=== PATIENT | female | born 1950 | race Caucasian/White ===

== ENCOUNTER → 2017-12-18 13:48 | Outpatient (CLI) | payer OTHER, SELFPAY ==
--- NOTE | 2017-12-18 | DI.RAD.S_ITS ---
PROCEDURE: XR CHEST 2V INDICATIONS: UNSPECIFIED ASTHMA TECHNIQUE: 2 views of the chest were acquired. COMPARISON: [facility], , CHEST 2 VIEW, 11/07/2015, 12:16. FINDINGS: Surgical changes and devices: None. Lungs and pleura: No pleural effusions or pneumothorax. Lungs are clear. Mediastinum: Mediastinal contours are normal. Heart size is normal. Bones and chest wall: No suspicious bony abnormalities. Lateral curvature of the spine Soft tissues appear unremarkable. IMPRESSION: No acute disease. Dictated by: Joey Alonso M.D. on 12/18/2017 at 15:27 Approved by: Joey Alonso M.D. on 12/18/2017 at 15:31
== END ==
PROVIDERS: PCP Physician Assistant; Visit Provider Physician Assistant
DX: J45.909 Unspecified asthma, uncomplicated (principal)
CPT/HCPCS: 71046

== ENCOUNTER → 2018-01-30 09:51 | Outpatient (CLI) | payer OTHER, SELFPAY ==
--- NOTE | 2018-01-30 | DI.RAD.S_ITS ---
PROCEDURE: XR HIP W PEL IF DONE LT 2V INDICATIONS: Pain in left hip TECHNIQUE: AP pelvis with lateral view(s) of the left hip(s). COMPARISON: None. FINDINGS: Bones: No fractures or dislocations. Pelvic ring appears intact. No suspicious bony lesions. Degenerative disc and facet disease involves the inferior lumbar spine. Degenerative changes seen at the pubis symphysis. Soft tissues: The visualized bowel gas pattern is normal. No suspicious soft tissue calcifications. IMPRESSION: No definite hip radiographic abnormality. If pain persists, consider cross sectional imaging such as CT or MRI for further assessment. Dictated by: Anderson Gerardo [facility] Interpreted: Joey Alonso MD on 01/30/2018 at 10:05 Approved by: Joey Alonso M.D. on 01/30/2018 at 15:48
== END ==
PROVIDERS: PCP Physician Assistant; Visit Provider Physician Assistant
DX: M25.552 Pain in left hip (principal)
CPT/HCPCS: 73502

== ENCOUNTER 2018-06-13 12:22 | Emergency (ER) | payer OTHER, SELFPAY ==
[2018-06-13 12:24] VITALS: BP 117/69; PULSE 78; RESP 14; TEMP 36.7; O2SAT 97
--- NOTE | 2018-06-13 14:00 | PC.NURSE ---
warm compress applied to leg
--- NOTE | 2018-06-13 14:14 | ED_ITS ---
HPI - Skin/Abscess/Foreign Bdy <MARTA Haywood - Last Filed: 06/13/18 16:06> General Chief complaint: Skin/Abscess/Foreign Body Stated complaint: spider bite Time Seen by Provider: 06/13/18 13:43 Source: patient and family Mode of arrival: ambulatory Limitations: no limitations History of Present Illness HPI narrative: Patient is a 67-year-old female former smoker who presents with her for chief complaint of a spider bite. She was started on Keflex on Friday, and took that for 2 days. She went back to her primary care provider, who stopped the Keflex and started her on Bactrim. She is concerned about lack of improvement of the redness. She denies any fevers nausea vomiting diarrhea or systemic signs of illness. She states overall she does not feel great at this point in time. She did not overlap antibiotics. She has been trying to rest her leg. She has applying warm compresses a few times a day. Related Data Allergies Allergy/AdvReac Type Severity Reaction Status Date / Time No Known Drug Allergies Allergy Verified 06/13/18 12:28 Review of Systems <MARTA Haywood - Last Filed: 06/13/18 16:06> Review of Systems GENERAL: Denies chills, fatigue, malaise, fever, sweats. HEENT: Denies sinus pain, ear pain, sore throat, difficulty swallowing, dizziness. RESPIRATORY: Denies dyspnea, cough, wheezing, hemoptysis, sputum. CARDIOVASCULAR: Denies chest pain, palpitations, orthopnea, edema, GASTROINTESTINAL: Denies nausea, vomiting, abdominal pain, diarrhea, constipation, melena. : Denies dysuria, frequency, incontinence, hematuria, urinary retention. MUSCULOSKELETAL: denies weakness, joint pain, or bony pain SKIN: See HPI NEUROLOGIC: Denies weakness, headache, numbness, change in speech, confusion, seizures, incoordination. PSYCHIATRIC: No concerning psychosocial issues. 12 point review of systems is negative except for those stated above PFSH <MARTA Haywood - Last Filed: 06/13/18 16:06> Social History Smoking Status: Former smoker Social History Smoking Status: Former smoker Exam <MARTA Haywood - Last Filed: 06/13/18 16:06> Narrative Exam Narrative: GENERAL: This is a well-nourished, well-developed patient, in no acute distress, wearing sunglasses in the exam room. HEAD: Atraumatic. Normocephalic. No temporal or scalp tenderness. EYES: Pupils equal round and reactive. Extraocular motions intact. No scleral icterus. No injection or drainage. ENT: Nose without bleeding, purulent drainage or septal hematoma. Throat without erythema, tonsillar hypertrophy or exudate. Uvula midline. Airway patent. NECK: Trachea midline. No JVD or lymphadenopathy. Supple, nontender, no meningeal signs. CARDIOVASCULAR: Regular rate and rhythm RESPIRATORY: Clear to auscultation. Breath sounds equal bilaterally. No wheezes, rales, or rhonchi. No increased respiratory effort. No accessory muscle use. GASTROINTESTINAL: Abdomen soft, non-tender, nondistended. No hepato- splenomegaly, or palpable masses. No guarding. EXTREMITIES: Positive pedal pulses left foot. No edema left foot. BACK: Nontender without deformity or crepitance. No flank tenderness. NEURO: AOx3. SKIN: 6 x 6 cm area of erythema left lower leg. No palpable fluctuance. Erythema is within border placed by primary care provider. No obvious drainage. Initial Vital Signs Initial Vital Signs: Vital Signs Temperature 98.1 F 06/13/18 12:24 Pulse Rate 78 06/13/18 12:24 Respiratory Rate 14 06/13/18 12:24 Blood Pressure 117/69 06/13/18 12:24 Pulse Oximetry 97 06/13/18 12:24 <Tamara Lugo DO - Last Filed: 06/13/18 19:48> Initial Vital Signs Initial Vital Signs: Vital Signs Temperature 98.1 F 06/13/18 12:24 Pulse Rate 78 06/13/18 12:24 Respiratory Rate 14 06/13/18 12:24 Blood Pressure 117/69 06/13/18 12:24 Pulse Oximetry 97 06/13/18 12:24 Course <MARTA Haywood - Last Filed: 06/13/18 16:06> Orders Ordered: ED Orders 06/13/18 14:05 Wound Culture and Gram Stain Stat Vital Signs - 8 hr 06/13/18 12:24 06/13/18 14:48 Temperature 98.1 F 97.1 F L Pulse Rate 78 70 Respiratory Rate 14 14 Blood Pressure 117/69 Blood Pressure [Left Arm] 110/72 Pulse Oximetry 97 99 <Tamara Lugo DO - Last Filed: 06/13/18 19:48> Orders Ordered: ED Orders 06/13/18 14:05 Wound Culture and Gram Stain Stat Vital Signs - 8 hr 06/13/18 12:24 06/13/18 14:48 Temperature 98.1 F 97.1 F L Pulse Rate 78 70 Respiratory Rate 14 14 Blood Pressure 117/69 Blood Pressure [Left Arm] 110/72 Pulse Oximetry 97 99 MDM - Skin/Abscess/Foreign Bdy <PEARL Haywood-BC - Last Filed: 06/13/18 16:06> MDM Narrative Medical decision making narrative: The patient is a 67 year old female presenting with chief complaint of a spider bite. She has been on Bactrim for 2 days at this point time. Her erythema is within the border. Given that she does not have any signs of systemic illness and has no fever, I do not see it for admit to change her antibiotics at this point time. She was also on Keflex for 2 days already, but stopped that therapy. A wound culture was obtained and in case her antibiotics need to be changed the future. I discussed at length return precautions including fever, vomiting and diarrhea. I encouraged her to follow up with primary care provider in a few days. Patient and stated understanding. Discharge Plan Departure Patient Disposition: Home Clinical Impression: Cellulitis Qualifiers: Site of cellulitis: extremity Site of cellulitis of extremity: lower extremity Laterality: left Qualified Code(s): L03.116 - Cellulitis of left lower limb Discharge Date/Time: 06/13/18 14:49 Interventions: ED Discharge Assessment Last Done: 06/13/18 14:49 Instructions: DI for Cellulitis -- Adult, How To Perform RICE (Rest, Ice, Compress, Elevate) Activity Restrictions/Additional Instructions: At this point I am not going to change your antibiotics. However we did obtained a wound culture to make sure that the antibiotic you are on is effective for the infection that you have. Please continue to rest and elevate her foot. Monitor for fevers nausea vomiting diarrhea. Please be evaluated if any of these occur. Referrals: Vee Saleh PA-C [Primary Care Provider] - <Tamara Lugo DO - Last Filed: 06/13/18 19:48> Cosign ED Attending Cosignature Attestation: I was immediately available in the department for consultation. This documentation has been reviewed and I agree with assessment and plan. Supervised by Tamara Lugo DO
[2018-06-13 14:48] VITALS: BP 110/72; PULSE 70; RESP 14; TEMP 36.2; O2SAT 99
== END 2018-06-13 14:49 | disposition home or self-care (01) ==
PROVIDERS: Emergency Provider Nurse Practitioner Family; PCP Physician Assistant
DX: L03.116 Cellulitis of left lower limb (principal)
CPT/HCPCS: 87070; 87205; 99282; 99283

== ENCOUNTER → 2018-06-30 09:21 | Outpatient (CLI) | payer OTHER, SELFPAY ==
--- NOTE | 2018-06-30 | DI.US.S_ITS ---
PROCEDURE: US ABDOMEN COMPLETE INDICATIONS: Abnormal results of liver function studies TECHNIQUE: Real-time scanning was performed of the abdominal and retroperitoneal organs, with image documentation. COMPARISON: [facility], MR, ABDOMEN WITHOUT CONTRAST, 12/30/2016, 7:11. [facility], US, ABDOMEN COMPLETE, 12/24/2016, 8:42. FINDINGS: Liver: Liver is normal in size and demonstrates mildly heterogeneous echotexture. Gallbladder: There is a nonmobile gallstone measuring 1.6 cm, unchanged from the last exam. No gallbladder wall thickening, pericholecystic fluid or sonographic Neri's sign. Biliary ducts: Intrahepatic bile ducts are non-dilated. Extrahepatic bile duct caliber measures 7.4 mm. Normal is 6-7 mm or less in diameter, or 10 mm or less post-cholecystectomy. Pancreas: Visualized portions of the pancreas are sonographically normal. Spleen: Spleen is normal in size and homogeneous in echotexture. Kidneys: Kidneys are normal in size and echotexture. Right kidney measures 10.7 cm long; left kidney measures 10.1 cm long. No hydronephrosis or nephrolithiasis. No solid masses. Aorta: Visualized aorta is normal in caliber at less than 3 cm. Iliacs: Proximal common iliac arteries are normal in caliber at less than 2.5 cm. IVC: Intrahepatic inferior vena cava is patent. Miscellaneous: No free abdominal fluid. IMPRESSION: 1. Cholelithiasis. 2. Prominent common bile duct. Please correlate with serum bilirubin for biliary obstruction. 3. Liver is slightly heterogeneous in echotexture. No focal hepatic mass. Dictated by: Shilpa Florentino M.D. on 06/30/2018 at 11:26 Approved by: Shilpa Florentino M.D. on 06/30/2018 at 11:30
== END ==
PROVIDERS: PCP Physician Assistant; Visit Provider Physician Assistant
DX: R94.5 Abnormal results of liver function studies (principal); K80.20 Calculus of gallbladder without cholecystitis without obstruction
CPT/HCPCS: 76700

== ENCOUNTER → 2018-08-06 07:46 | Outpatient (CLI) | payer OTHER, SELFPAY ==
--- NOTE | 2018-08-06 | DI.MRI.S_ITS ---
PROCEDURE: MR ABDOMEN WO CON INDICATIONS: ELEVATED LFTS AND CBD DIALATION TECHNIQUE: Coronal HASTE through the abdomen, axial 2-D FLASH in- and [id number], and breath-hold T2 FSE with fat saturation through the biliary system and pancreas. Oblique coronal and axial thin-slice HASTE, radial thick-slab HASTE centered on the extrahepatic bile ducts. Intravenous secretin: Not requested. COMPARISON: [facility], US, US ABDOMEN COMPLETE, 06/30/2018, 9:33. [facility], MR, ABDOMEN WITHOUT CONTRAST, 12/30/2016, 7:11. FINDINGS: Image quality: Excellent. Pancreas and biliary system: Intra- and extra-hepatic biliary ducts are non dilated. The common duct measures 6.7 mm in maximal diameter. No choledocholithiasis. Pancreas is normal in morphology, without adjacent soft tissue edema. Pancreatic duct is normal in caliber, without developmental anomalies. Gallbladder contains a 1.5 cm stone dependently within the gallbladder body. No surrounding inflammatory changes, pericholecystic fluid, or wall thickening.. Other solid organs: Liver is normal in size. Spleen is normal in size. No adrenal nodules. Both kidneys are normal in size, without hydronephrosis. Nodes and vessels: No retroperitoneal or mesenteric adenopathy by size criteria. Aorta and inferior vena cava are normal in size. Bowel and peritoneum: Unenhanced bowel loops are normal in caliber. No free fluid. Lung bases: No basal pleural effusions. Heart size is normal. Bones and soft tissues: No ventral hernias. Bone marrow is of normal overall signal. IMPRESSION: 1. Cholelithiasis. 2. Normal common duct caliber for patient's age. No evidence of choledocholithiasis. 3. Stable compared to the prior studies. Dictated by: Christel Omalley M.D. on 08/06/2018 at 11:10 Approved by: Christel Omalley M.D. on 08/06/2018 at 11:21
== END ==
PROVIDERS: PCP Physician Assistant; Visit Provider Physician Assistant
DX: R79.89 Other specified abnormal findings of blood chemistry (principal); K83.8 Other specified diseases of biliary tract; K80.20 Calculus of gallbladder without cholecystitis without obstruction
CPT/HCPCS: 74181

== ENCOUNTER → 2018-08-28 10:04 | Outpatient (CLI) | payer OTHER, SELFPAY ==
[2018-08-28 11:42] LABS: Alanine Aminotransferase 44 IU/L (9-52); Albumin 4.9 g/dL (3.5-5.0); Albumin Globulin Ratio 1.4 (1.0-2.8); Alkaline Phosphatase 112 U/L (38-126); Aspartate Aminotransferase 36 IU/L (14-36); BUN Creatinine Ratio 21.4 (6-22); Bilirubin Total 0.7 mg/dL (0.2-1.3); Blood Urea Nitrogen 15 mg/dL (7-17); Calcium 9.7 mg/dL (8.4-10.2); Carbon Dioxide 29 mmol/L (22-32); Chloride 101 mmol/L (98-107); Estimated Glomerular Filt Rate > 60.0 mL/min (>60); Gamma Glutamyl Transpeptidase 297 U/L (12-43); Globulin 3.4 g/dL (1.7-4.1); Glucose 102 mg/dL (80-110); HEMOLYSIS < 15 (0-50); Potassium 4.1 mmol/L (3.4-5.1); Sodium 138 mmol/L (137-145); Total Protein 8.3 g/dL (6.3-8.2)
[2018-08-30 19:54] LABS: ANA Screen, IFA Positive (Negative)
[2018-09-01 10:39] LABS: Anti Mitochondrial ABY IGG < 20.1 Units (< 20.1)
== END ==
PROVIDERS: PCP Physician Assistant; Visit Provider Physician Assistant
DX: K80.20 Calculus of gallbladder without cholecystitis without obstruction (principal)
CPT/HCPCS: 36415; 80053; 82977; 83516; 86038